=== PATIENT | female | born 1985 | race Caucasian/White ===

== ENCOUNTER 2023-11-08 10:00 | Inpatient (IN) ==
[2023-11-08] MEDS ORDERED: Buffered Lidocaine 1% SYRIN 1 ml INTRADERM ONE (10:15)
[2023-11-08] MEDS ORDERED: Prochlorperazine 5 mg/ml 2 ml VIAL (10 mg) IV PRN (10:15)
[2023-11-08] MEDS ORDERED: Lidocaine 1% VIAL 10 MG/ML 30 ML VIAL INJ PRN (10:15)
[2023-11-08] MEDS ORDERED: Nalbuphine 10 MG/ML 1 ML VIAL IV PRN (10:15)
[2023-11-08] MEDS ORDERED: Lactated Ringers 1000 ml BAG 1,000 ML IV SCH ×2 (11:00→18:00)
[2023-11-08] MEDS: Lactated Ringers 1000 ml BAG 1,000 ML IV ONE (11:10)
[2023-11-08] MEDS: Oxytocin in LR 20,000 MILLI.UNIT/1,000 ML BAG IV SCH (11:20)
[2023-11-08 11:23] LABS: ABS Monocytes 0.5 10^3/uL (0.0-0.9); ABS Nucleated RBC 0.01 10^3/ul; Eosinophil % 0.5 %; Hematocrit 35.8 % (35-45); Hemoglobin 12.1 g/dL (11.5-14.3); Lymphocyte % 14.9 %; Mean Corpuscular Hemoglobin 26.6 pg (27-33); Mean Corpuscular Hgb Conc 33.7 g/dL (31-36); Mean Platelet Volume 7.6 fL (7.5-11.2); Nucleated Red Blood Cells % 0.2 %/100WBC (0.0-0.8); Platelet Count 217 10^3/uL (150-450); Red Blood Count 4.53 10^6/uL (3.63-4.92); Red Cell Distribution Width 16.3 % (12-17); White Blood Count 6.5 10^3/uL (3.8-11.8)
[2023-11-08] MEDS ORDERED: OBEPIDURAL (200 ML) 200 ML EPIDURAL ONE (11:37)
[2023-11-08] MEDS ORDERED: Lidocaine 1.5% EPI 1:200,000 30 ML SDV ONE (11:38)
[2023-11-08] MEDS ORDERED: Lactated Ringers 1000 ml BAG 1,000 ML IV ONE (12:55)
[2023-11-08] MEDS ORDERED: Sodium Citrate/Citric Acid LIQ 15 ML UDC PO PRN (12:55)
[2023-11-08] MEDS ORDERED: Phenylephrine 40 mcg/mL 10mL (400mcg) SYRINGE IV PUSH PRN ×2 (12:55)
[2023-11-08 13:02] LABS: Urine Benzodiazepine Screen None Detected (None Detect); Urine Cannabinoids Screen None Detected (None Detect); Urine Opiates Screen None Detected (None Detect)
[2023-11-08] MEDS: OBEPIDURAL (200 ML) 200 ML EPIDURAL SCH (13:53)
[2023-11-08 14:59] LABS: Urine Appearance Clear; Urine Bilirubin Negative (Negative); Urine Blood Negative (Negative); Urine Color Colorless; Urine Glucose Negative (Negative); Urine Ketones 2+ (Negative); Urine Nitrite Negative (Negative); Urine Protein Negative (Negative); Urine Specific Gravity 1.008 (1.002-1.030); Urine Urobilinogen Negative (Negative)
[2023-11-08] MEDS ORDERED: Lidocaine 2% PF 5 ML VIAL ONE (15:49)
[2023-11-08] MEDS ORDERED: Bupivacaine 0.25% SDV PF 10 ML VIAL INJ ONE (15:50)
[2023-11-08] MEDS ORDERED: Glycerin ADULT 2.4 gm SUPP PR PRN (17:30)
[2023-11-09 07:05] LABS: ABS Eosinophils 0.1 10^3/uL (0.0-0.5); ABS Lymphocytes 1.3 10^3/uL (1.0-4.8); ABS Monocytes 0.7 10^3/uL (0.0-0.9); ABS Neutrophils 5.2 10^3/uL (1.5-7.6); ABS Nucleated RBC 0.01 10^3/ul; Eosinophil % 1.4 %; Hematocrit 37.4 % (35-45); Hemoglobin 12.9 g/dL (11.5-14.3); Lymphocyte % 17.9 %; Mean Corpuscular Hemoglobin 27.1 pg (27-33); Mean Corpuscular Hgb Conc 34.4 g/dL (31-36); Mean Corpuscular Volume 78.8 fL (80-97); Mean Platelet Volume 7.4 fL (7.5-11.2); Nucleated Red Blood Cells % 0.2 %/100WBC (0.0-0.8); Platelet Count 190 10^3/uL (150-450); Red Blood Count 4.75 10^6/uL (3.63-4.92); Red Cell Distribution Width 16.6 % (12-17); White Blood Count 7.4 10^3/uL (3.8-11.8)
[2023-11-09] MEDS: Dibucaine 1% OINT 28.35 GM TUBE PR PRN (09:31)
[2023-11-09] MEDS: Witch Hazel PAD JAR TOPICAL PRN (09:32)
[2023-11-09] MEDS: RHO D Immune Globulin (HUMAN) 300 MCG = 1,500 I.U. INJ IM PRN (11:51)
[2023-11-09 19:39] VITALS: BP 116/80
== END 2023-11-09 20:18 | disposition home or self-care (01) | DRG 560 ==
LOC: MCHOBOUT 10:00 → MCHOB 10:25
PROVIDERS: ADMIT Obstetrics & Gynecology; ATTEND Obstetrics & Gynecology